=== PATIENT | female | born 1980 | race Caucasian/White ===

== ENCOUNTER 2018-02-16 17:56 | Emergency (ER) | payer OTHER ==
[~2018-02-16] VITALS: Ht 170.2 cm; Wt 75.0 kg
[2018-02-16 18:29] VITALS: BP 123/76
== END 2018-02-16 21:00 | disposition left against medical advice (07) ==
LOC: ER 17:56
DX: Z00.00 Encounter for general adult medical examination without abnormal findings (principal)
CPT/HCPCS: 99281